=== PATIENT | female | born 1960 | race Caucasian/White ===

== ENCOUNTER 2017-02-06 10:32 | Outpatient (CLI) ==
[2016-03-08 11:42] VITALS: BMI 19.3
[2017-02-06 13:17] LABS: BASOPHILS % (AUTO) 0.2 % (0.0-3.0); EOSINOPHILS # (AUTO) 0.2 K/ul (0.0-0.7); EOSINOPHILS % (AUTO) 2.6 % (0.0-7.0); HEMATOCRIT 44.7 % (37.0-47.0); HEMOGLOBIN 15.1 g/dl (12.0-16.0); IMMATURE GRANULOCYTE % (AUTO) 0.2 % (0.0-5.0); LYMPHOCYTES # (AUTO) 2.5 K/uL (0.60-3.4); LYMPHOCYTES % (AUTO) 40.6 (10.0-50.0); MEAN CORPUSCULAR HEMOGLOBIN 31.3 pg (27.0-31.0); MEAN CORPUSCULAR HGB CONC 33.8 (31.8-35.4); MEAN CORPUSCULAR VOLUME 92.5 fl (81.0-99.0); MONOCYTES # (AUTO) 0.4 K/uL (0.4-2.0); MONOCYTES % (AUTO) 5.9 (0-10); NEUTROPHILS # (AUTO) 3.2 K/ul (2.0-6.9); NEUTROPHILS % (AUTO) 50.5; PLATELET COUNT 304 10^3/uL (140-440); RED BLOOD COUNT 4.83 10^6/ul (4.20-5.40); WHITE BLOOD COUNT 6.26 K/ul (4.6-10.2)
[2017-02-06 13:39] LABS: BILIRUBIN,URINE Negative (NEGATIVE); KETONES,URINE Negative (NEGATIVE); LEUKOCYTE ESTERASE ,URINE Negative (NEGATIVE); NITRITE,URINE Negative (NEGATIVE); PROTEIN,URINE Negative (NEGATIVE); URINE, BLOOD Trace-intact (NEGATIVE)
[2017-02-06 13:40] LABS: ADD URINE MICROSCOPIC YES
[2017-02-06 13:59] LABS: ALBUMIN/GLOBULIN RATIO 1.29; ANION GAP 13.9; BILIRUBIN,TOTAL 0.48 mg/dL (0.00-1.20); BUN/CREATININE RATIO 16.43; CALCIUM 9.8 mg/dL (8.2-10.2); CHOL/HDL RATIO 2.6 (4.5-5.5); CREATININE 0.73 mg/dL (0.60-1.30); POTASSIUM 3.9 mmol/L (3.5-5.10); TOTAL PROTEIN 7.1 g/dL (6.4-8.2)
== END 2017-02-06 10:33 | disposition home or self-care (01) ==
LOC: LAB 10:32
PROVIDERS: ATTEND General Practice
DX: M81.0 Age-related osteoporosis without current pathological fracture (principal); M89.9 Disorder of bone, unspecified; E78.5 Hyperlipidemia, unspecified; J44.9 Chronic obstructive pulmonary disease, unspecified; K21.9 Gastro-esophageal reflux disease without esophagitis; F17.200 Nicotine dependence, unspecified, uncomplicated; Z79.899 Other long term (current) drug therapy
CPT/HCPCS: 36415; 80053; 80061; 81001; 82306; 85025

== ENCOUNTER 2017-02-13 22:17 | Emergency (ER) ==
[2017-02-13 22:26] VITALS: BP 121/89; TEMP 98; BMI 18.1
[2017-02-13] MEDS ORDERED: ASPIRIN CHEWABLE PO STA (22:45)
--- NOTE | 2017-02-13 22:49 | ED.PDOC ---
General ED Provider: Dr. GENIA BYRNES Chief Complaint: Abdominal Pain Stated Complaint: epigastric and chest pain, she usually takes the prilosec at night, she did not take it, when she went ro sleep she hurt in the chest came for the evaluation, non exertional, not short of breath, Time Seen by Physician: 22:47 Mode of Arrival: Ambulance Information Source: Patient Primary Care Provider: [facility] T[facility] Documentation Reviewed and Agree: Yes Cardiovascular Complaint Exam - Chest Pain Complaint/Exam Onset: Gradual Symptoms Are: Still present Timing: Constant Initial Severity: Mild Current Severity: None Location: Reports: Midsternal Pain Radiates: Reports: None Character: Reports: Burning Aggravating: Reports: None Alleviating: Reports: None, OTC meds (Prilosec) Associated Signs and Symptoms: Reports: Nausea, Abdominal pain (epigastric ) Related History: Reports: Similar episode Related Surgical History: Reports: None History of Healthcare-Acquired Pneumonia: Reports: No AMI/ACS Risk Factors: Reports: Hypertension, Smoking TAD Risk Factors: Reports: None Pulmonary Embolism Risk Factors: Reports: None Prior Care for this Complaint: No Recent Stress Test: No Recent Echo/LV Function: No JVD Present: No Subcutaneous Emphysema Present: No Diminshed Breath Sounds: No Reproducible Chest Wall Pain: No Bilateral Pulses Present: Yes Unequal Pulses Noted: No If Risk Factors for AMI/ACS Consider: EKG, Cardiac Enzymes, Serial Studies Differential Diagnoses: ACS, GI Diseasae Review of Systems - Review Of Systems Constitutional: Reports: No symptoms Eyes: Reports: No symptoms Ears, Nose, Mouth, Throat: Reports: No symptoms Respiratory: Reports: No symptoms Cardiac: Reports: Chest pain GI: Reports: Abdominal pain : Reports: No symptoms Musculoskeletal: Reports: No symptoms Skin: Reports: No symptoms Neurological: Reports: No symptoms Endocrine: Reports: No symptoms Hematologic/Lymphatic: Reports: No symptoms All Other Systems: Reviewed and Negative Past Medical History - Past Medical History Previously Healthy: No Endocrine: Reports: Dyslipidemia Cardiovascular: Reports: None Respiratory: Reports: None, COPD Hematological: Reports: None Gastrointestinal: Reports: GERD Genitourinary: Reports: None Neuro/Psych: Reports: None, Anxiety Musculoskeletal: Reports: None Cancer: Reports: Other (skin cancer. melanoma) Last Menstrual Period: 8 yrs ago - Surgical History General Surgical History: Reports: Unknown - Family History Family History: Reports: None - Social History Smoking Status: Current every day smoker, Heavy tobacco smoker Smoking Cessation Counseling Time: > 10 min Hx Substance Use: No Alcohol Screening: None - Immunizations Tetanus Shot up to Date: Yes Physical Exam - Physical Exam Appearance: Well-appearing, No pain distress, Well-nourished Eyes: AMILACR, EOMI, Conjunctiva clear ENT: Ears normal, Nose normal, Oropharynx normal Respiratory: Airway patent, Breath sounds clear, Breath sounds equal, Respirations nonlabored Cardiovascular: RRR, Pulses normal, No rub, No murmur GI/: Soft, Nontender, No masses, Bowel sounds normal, No Organomegaly Musculoskeletal: Normal strength, ROM intact, No edema, No calf tenderness Skin: Warm, Dry, Normal color Neurological: Sensation intact, Motor intact, Reflexes intact, Cranial nerves intact, Alert, Oriented Psychiatric: Affect appropriate, Mood appropriate Critical Care Note - Critical Care Note Total Time (mins): 0 Course - Course Orders, Labs, Meds: Orders Category Date Time Status EKG-(ED ONLY) Stat CARDIO 02/13/17 22:45 Ordered CBC W/ AUTO DIFF Stat LAB 02/13/17 22:45 Ordered COMPREHENSIVE METABOLIC PANEL Stat LAB 02/13/17 22:45 Ordered CREATINE KINASE Stat LAB 02/13/17 22:45 Ordered TROPONIN I Stat LAB 02/13/17 22:45 Ordered Aspirin [Aspirin Chewable] MEDS 02/13/17 22:45 Stat 324 mg PO ONCE STA Vital Signs: Temp Pulse Resp BP Pulse Ox 02/13/17 22:19 98 F 71 20 121/89 98 CIARA Risk Score CIARA Risk Score: Risk Score Odds of by 30D 0 0.1 (0.1-0.2) 1 0.3 (0.2-0.3) 2 0.4 (0.3-0.5) 3 0.7 (0.6-0.9) 4 1.2 (1.0-1.5) 5 2.2 (1.9-2.6) 6 3.0 (2.5-3.6) 7 4.8 (3.8-6.1) Departure - Departure Time of Disposition: 22:57 Disposition: AMA Discharge Problem: Abdominal pain, Peptic reflux disease Instructions: Diet for Stomach Ulcers and Gastritis (ED) Condition: Stable Pt referred to PMD for follow-up: Yes Additional Instructions: no spicy food, no fried food keep taking prilosec as needed. Allergies/Adverse Reactions: Allergies naproxen Allergy (Mild, Unverified 02/10/17 13:03) Unknown Causes pain in legs. Home Medications: Ambulatory Orders Budesonide/Formoterol Fumarate [Symbicort 160-4.5 Mcg Inhaler] 1 puff IH BID Naproxen 500 mg PO BID 11/08/13 Albuterol Sulfate [Proair Hfa] 2 puff IH Q4H 04/08/15 Omeprazole [Prilosec] 20 mg PO QDAC 04/08/15 Rosuvastatin Calcium [Crestor] 10 mg PO DAILY 04/08/15 Oxycodone HCl/Acetaminophen [Percocet 7.5-325 mg Tablet] 7.5 mg PO BID 01/01/16 Cyclobenzaprine HCl [Flexeril] 10 mg PO BID 03/08/16 Disposition Discussed With: Patient, Family
== END 2017-02-13 23:05 | disposition left against medical advice (07) ==
LOC: ED 22:17
DX: K21.9 Gastro-esophageal reflux disease without esophagitis (principal); R10.13 Epigastric pain; I10 Essential (primary) hypertension; F17.210 Nicotine dependence, cigarettes, uncomplicated; Z79.899 Other long term (current) drug therapy
CPT/HCPCS: 99285

== ENCOUNTER 2017-07-06 13:55 | Outpatient (CLI) ==
[2017-07-06 14:13] LABS: BILIRUBIN,URINE Negative (NEGATIVE); KETONES,URINE Negative (NEGATIVE); LEUKOCYTE ESTERASE ,URINE Negative (NEGATIVE); NITRITE,URINE Negative (NEGATIVE); PROTEIN,URINE Negative (NEGATIVE); URINE, BLOOD Trace-intact (NEGATIVE)
[2017-07-06 14:23] LABS: ALBUMIN 3.8 g/dL (3.4-5.0); ALBUMIN/GLOBULIN RATIO 1.19; ANION GAP 15.3; BILIRUBIN,TOTAL 0.45 mg/dL (0.00-1.20); BUN/CREATININE RATIO 14.7; CALCIUM 10.2 mg/dL (8.2-10.2); CHOL/HDL RATIO 2.6 (4.5-5.5); CREATININE 0.68 mg/dL (0.60-1.30); POTASSIUM 4.3 mmol/L (3.5-5.10)
[2017-07-06 14:26] LABS: ADD URINE MICROSCOPIC YES
[2017-07-06 14:27] LABS: BACTERIA,URINE TRACE (NOT PRESENT)
[2017-07-06 14:53] LABS: BASOPHILS % (AUTO) 0.2 % (0.0-3.0); EOSINOPHILS # (AUTO) 0.2 K/ul (0.0-0.7); EOSINOPHILS % (AUTO) 2.7 % (0.0-7.0); HEMOGLOBIN 14.8 g/dl (12.0-16.0); IMMATURE GRANULOCYTE % (AUTO) 0.2 % (0.0-5.0); LYMPHOCYTES # (AUTO) 2.2 K/uL (0.60-3.4); LYMPHOCYTES % (AUTO) 40.3 (10.0-50.0); MEAN CORPUSCULAR HEMOGLOBIN 31.2 pg (27.0-31.0); MEAN CORPUSCULAR HGB CONC 33.6 (31.8-35.4); MEAN CORPUSCULAR VOLUME 92.6 fl (81.0-99.0); MONOCYTES # (AUTO) 0.3 K/uL (0.4-2.0); MONOCYTES % (AUTO) 5.8 (0-10); NEUTROPHILS # (AUTO) 2.8 K/ul (2.0-6.9); NEUTROPHILS % (AUTO) 50.8; PLATELET COUNT 268 10^3/uL (140-440); RED BLOOD COUNT 4.75 10^6/ul (4.20-5.40); WHITE BLOOD COUNT 5.48 K/ul (4.6-10.2)
== END 2017-07-06 13:56 | disposition home or self-care (01) ==
LOC: LAB 13:55
PROVIDERS: ATTEND General Practice
DX: E78.5 Hyperlipidemia, unspecified (principal); F17.200 Nicotine dependence, unspecified, uncomplicated; J44.9 Chronic obstructive pulmonary disease, unspecified; K21.9 Gastro-esophageal reflux disease without esophagitis; M89.9 Disorder of bone, unspecified; Z79.899 Other long term (current) drug therapy
CPT/HCPCS: 36415; 80053; 80061; 81001; 85025

== ENCOUNTER 2017-07-07 14:57 | Outpatient (CLI) ==
--- NOTE | 2017-07-07 15:24 | DI ---
EXAM: Chest two view, frontal and lateral views. HISTORY: Abnormal weight loss. COMPARISON: 10/04/2016. FINDINGS: The heart size is normal. There is no pulmonary vascular congestion. The lungs are clear . No pleural effusion or pneumothorax is seen. No acute osseous abnormality identified. Old left s ixth rib fracture noted. Since the prior study, there has been no significant interval change. IMPRESSION: No acute cardiopulmonary process.
== END 2017-07-07 14:58 | disposition home or self-care (01) ==
LOC: RAD 14:57 → LAB 14:58
PROVIDERS: ATTEND General Practice
DX: R63.4 Abnormal weight loss (principal); R31.29 Other microscopic hematuria; J44.9 Chronic obstructive pulmonary disease, unspecified; F17.200 Nicotine dependence, unspecified, uncomplicated
CPT/HCPCS: 36415; 84443

== ENCOUNTER → 2017-07-26 | Outpatient (POV) | LOC: OUTPT 00:01 | PROVIDERS: ATTEND Otolaryngology | DX: H91.90 Unspecified hearing loss, unspecified ear (principal); H69.90 Unspecified Eustachian tube disorder, unspecified ear; H73.891 Other specified disorders of tympanic membrane, right ear ==

== ENCOUNTER 2017-12-01 09:57 | Outpatient (CLI) ==
--- NOTE | 2017-12-01 12:00 | DI ---
EXAM: Two views of the chest. History: Squamous cell cancer. Comparison: Chest radiograph 07/07/2017 Findings: Heart size is within normal limits. No focal consolidation. No appreciable pleural fluid and no pneumothorax. No acute osseous abnormalities. Impression: No acute cardiopulmonary process. No change compared to the prior study
== END 2017-12-01 09:58 | disposition home or self-care (01) ==
LOC: LAB 09:57
PROVIDERS: ATTEND Surgery
DX: C44.722 Squamous cell carcinoma of skin of right lower limb, including hip (principal)
CPT/HCPCS: 36415; 80053; 85027; 93005; 93010

== ENCOUNTER 2018-03-19 15:34 | Outpatient (CLI) | payer OTHER ==
--- NOTE | 2018-03-19 15:56 | DI ---
EXAM: Three-view right foot COMPARISON: None HISTORY: Trauma and pain FINDINGS: There is no acute fracture or dislocation. Alignment is anatomic. There is partial amputa tion of the great toe. There is no soft tissue swelling. No unexpected radio-opaque foreign bodies. T here is no periosteal reaction or erosion. IMPRESSION: No acute osseous abnormality.
== END 2018-03-19 15:35 | disposition home or self-care (01) ==
LOC: RAD 15:34
PROVIDERS: ATTEND General Practice
DX: M79.89 Other specified soft tissue disorders (principal)

== ENCOUNTER 2018-07-18 13:54 | Outpatient (CLI) | payer OTHER | END 2018-07-18 13:55 | disposition home or self-care (01) | LOC: RHC-LAB 13:54 | PROVIDERS: ATTEND Nurse Practitioner Family | DX: J02.9 Acute pharyngitis, unspecified (principal) | CPT/HCPCS: 87651 ==

== ENCOUNTER 2018-07-27 15:50 | Outpatient (CLI) | payer OTHER | END 2018-07-27 15:51 | disposition home or self-care (01) | LOC: FCC-LAB 15:50 | PROVIDERS: ATTEND Nurse Practitioner Family | DX: J02.9 Acute pharyngitis, unspecified (principal) | CPT/HCPCS: 87651 ==

== ENCOUNTER 2018-10-18 15:18 | Emergency (ER) ==
[2018-10-18 15:26] VITALS: BP 111/76; TEMP 99.1; BMI 15.7
--- NOTE | 2018-10-18 16:58 | ED.PDOC ---
General ED Provider: Dr. CESAR VALDERRAMA Chief Complaint: Nausea/Vomiting Stated Complaint: nausea, vomiting, diarrhea Time Seen by Physician: 15:30 (seen with her nurse at all times ) Mode of Arrival: Walk-In Information Source: Patient Exam Limitations: No limitations Primary Care Provider: SYLVIE ESPAÑA Nursing and Triage Documentation Reviewed and Agree: Yes Does patient meet sepsis criteria?: No System Inflammatory Response Syndrome: Not Applicable Sepsis Protocol: For patient's 13 years and over: Temp is 96.8 and below OR 101 and greater Pulse >90 BPM Resp >20/minute Acutely Altered Mental Status Are patient's symptoms suggestive of a new infection, such as: -Pneumonia -Skin, Soft Tissue -Endocarditis -UTI -Bone, Joint Infection -Implantable Device -Acute Abdominal Infection -Wound Infection -Meningitis -Blood Stream Catheter Infection -Unknown GI Complaint Exam - Vomiting/Diarrhea Complaint/Exam Onset/Duration: 1 day Symptoms Are: Resolved Episodes of Vomiting over last 24 Hours: 2 Episodes of Diarrhea Over Last 24 Hours: 2 Initial Severity: Mild Current Severity: None Character of Vomiting: Reports: Non-bilious Aggravating: Reports: None Alleviating: Reports: None Associated Signs and Symptoms: Denies: Dizziness, Light-headedness, Melena, Hematemesis, Fever, Abdominal pain, Cramping Related History: Reports: Similar episode Related Surgical History: Reports: None Abdominal Findings: Present: None Kussmaul Respirations Present: No Review of Systems - Review Of Systems Constitutional: Reports: No symptoms Eyes: Reports: No symptoms Ears, Nose, Mouth, Throat: Reports: No symptoms Respiratory: Reports: No symptoms Cardiac: Reports: No symptoms GI: Reports: Diarrhea, Nausea, Poor appetite, Vomiting : Reports: No symptoms Musculoskeletal: Reports: No symptoms Skin: Reports: No symptoms Neurological: Reports: No symptoms Endocrine: Reports: No symptoms Hematologic/Lymphatic: Reports: No symptoms All Other Systems: Reviewed and Negative Past Medical History - Past Medical History Previously Healthy: No Endocrine: Reports: Dyslipidemia Cardiovascular: Reports: None Respiratory: Reports: None, COPD Hematological: Reports: None Gastrointestinal: Reports: GERD Genitourinary: Reports: None Neuro/Psych: Reports: None, Anxiety Musculoskeletal: Reports: None Cancer: Reports: Other (skin cancer. melanoma) Last Menstrual Period: 10years ago - Surgical History General Surgical History: Reports: Unknown - Family History Family History: Reports: None - Social History Smoking Status: Current every day smoker Hx Substance Use: No Alcohol Screening: None - Immunizations Tetanus Shot up to Date: Yes Physical Exam - Physical Exam Appearance: Well-appearing, No pain distress, Well-nourished Eyes: AMILCAR, EOMI, Conjunctiva clear ENT: Ears normal, Nose normal, Oropharynx normal Respiratory: Airway patent, Breath sounds clear, Breath sounds equal, Respirations nonlabored Cardiovascular: RRR, Pulses normal, No rub, No murmur GI/: Soft, Nontender, No masses, Bowel sounds normal, No Organomegaly Musculoskeletal: Normal strength, ROM intact, No edema, No calf tenderness Skin: Warm, Dry, Normal color Neurological: Sensation intact, Motor intact, Reflexes intact, Cranial nerves intact, Alert, Oriented Psychiatric: Affect appropriate, Mood appropriate Critical Care Note - Critical Care Note Total Time (mins): 0 Course - Course Hematology/Chemistry: 10/18/18 16:13 10/18/18 15:58 Orders, Labs, Meds: Lab Review 10/18/18 10/18/18 10/18/18 15:58 16:13 16:13 WBC 3.24 L RBC 5.10 Hgb 15.3 Hct 44.8 MCV 87.8 MCH 30.0 MCHC 34.2 RDW Coeff of Abilio 12.1 Plt Count 181 Immature Gran % (Auto) 0.0 Neut % (Auto) 62.7 Lymph % (Auto) 29.6 [place] % (Auto) 5.2 Eos % (Auto) 2.2 Baso % (Auto) 0.3 Immature Gran # (Auto) 0.0 Neut # (Auto) 2.0 Lymph # (Auto) 1.0 [place] # (Auto) 0.2 L Eos # (Auto) 0.1 Baso # (Auto) 0.0 Sodium 135.1 Potassium 3.06 L Chloride 98.8 Carbon Dioxide 29.9 Anion Gap 9.46 BUN 11.2 Creatinine 0.48 L Estimated GFR (MDRD) 133.00 BUN/Creatinine Ratio 23.33 Glucose 108.6 H Lactic Acid Calcium 9.19 Total Bilirubin 0.32 AST 31.1 ALT 21.8 Alkaline Phosphatase 63.2 Total Protein 7.27 Albumin 4.30 Globulin 2.97 Albumin/Globulin Ratio 1.44 Procalcitonin 0.37 10/18/18 16:13 WBC RBC Hgb Hct MCV MCH MCHC RDW Coeff of Abilio Plt Count Immature Gran % (Auto) Neut % (Auto) Lymph % (Auto) [place] % (Auto) Eos % (Auto) Baso % (Auto) Immature Gran # (Auto) Neut # (Auto) Lymph # (Auto) [place] # (Auto) Eos # (Auto) Baso # (Auto) Sodium Potassium Chloride Carbon Dioxide Anion Gap BUN Creatinine Estimated GFR (MDRD) BUN/Creatinine Ratio Glucose Lactic Acid 0.57 L Calcium Total Bilirubin AST ALT Alkaline Phosphatase Total Protein Albumin Globulin Albumin/Globulin Ratio Procalcitonin Orders Category Date Time Status BLOOD CULTURE (ED ONLY) Stat LAB 10/18/18 16:13 Received CBC W/ AUTO DIFF Stat LAB 10/18/18 16:13 Completed COMPREHENSIVE METABOLIC PANEL Stat LAB 10/18/18 15:58 Completed FLU A/B MOLECULAR Stat LAB 10/18/18 15:58 Uncollected LACTIC ACID Stat LAB 10/18/18 16:13 Completed MOLECULAR GROUP A STREP Stat LAB 10/18/18 15:58 Uncollected PROCALCITONIN Stat LAB 10/18/18 16:13 Completed RSV Stat LAB 10/18/18 15:58 Uncollected URINALYSIS C & S IF INDICATED Stat LAB 10/18/18 15:58 Uncollected CHEST, 2 VIEWS PA & LAT Stat RADS 10/18/18 15:58 Ordered Vital Signs: Temp Pulse Resp BP Pulse Ox 10/18/18 15:19 99.1 F 86 20 111/76 98 Departure - Departure Time of Disposition: 18:00 Disposition: HOME SELF-CARE Discharge Problem: Nausea, Vomiting, Viral syndrome, Hypokalemia Instructions: Hypokalemia (ED) Condition: Good Pt referred to PMD for follow-up: Yes IPMP verified?: No Additional Instructions: Please call your Family Physician as soon as possible to schedule a follow-up appointment. Allergies/Adverse Reactions: Allergies naproxen Allergy (Mild, Unverified 05/25/18 14:55) Unknown Causes pain in legs. Home Medications: Ambulatory Orders Budesonide/Formoterol Fumarate [Symbicort 160-4.5 Mcg Inhaler] 1 puff IH BID PRN 11/08/13 Disposition Discussed With: Patient
[2018-10-18] MEDS ORDERED: K-DUR PO STA (16:59)
[2018-10-18] MEDS ORDERED: SODIUM CHLORIDE 1,000 ML IV STA (17:03)
[2018-10-18] MEDS ORDERED: POTASSIUM CHLORIDE PREMIX RUN 10 MEQ in PREMIX 100 ML WATER 1 BAG IV STA (17:04)
== END 2018-10-18 17:13 | disposition home or self-care (01) ==
LOC: ED 15:18
DX: B34.9 Viral infection, unspecified (principal); E87.6 Hypokalemia; R11.2 Nausea with vomiting, unspecified; F17.210 Nicotine dependence, cigarettes, uncomplicated; E78.5 Hyperlipidemia, unspecified; R19.7 Diarrhea, unspecified; J44.9 Chronic obstructive pulmonary disease, unspecified; K21.9 Gastro-esophageal reflux disease without esophagitis
CPT/HCPCS: 36415; 80053; 83605; 84145; 85025; 87040; 87502; 87651; 87801; 99284

== ENCOUNTER 2018-11-01 14:45 | Emergency (ER) ==
[2018-11-01 14:48] VITALS: BP 115/58; TEMP 98.7; BMI 14.8
--- NOTE | 2018-11-01 15:16 | ED.PDOC ---
General ED Provider: Dr. ARA BRASHER Chief Complaint: Respiratory Complaint Stated Complaint: c/o shortness of air and lungs hurting when she breathes. c/ o cough that is non-prod. denies fever. patient has clear nasal congestion. Was treated in ER 2 wks ago for flu and low potassium Time Seen by Physician: 14:50 Mode of Arrival: Walk-In Information Source: Patient Exam Limitations: No limitations Primary Care Provider: SYLVIE ESPAÑA Nursing and Triage Documentation Reviewed and Agree: Yes Does patient meet sepsis criteria?: No If yes, has appropriate treatment been initiated?: No System Inflammatory Response Syndrome: Not Applicable Sepsis Protocol: For patient's 13 years and over: Temp is 96.8 and below OR 101 and greater Pulse >90 BPM Resp >20/minute Acutely Altered Mental Status Are patient's symptoms suggestive of a new infection, such as: -Pneumonia -Skin, Soft Tissue -Endocarditis -UTI -Bone, Joint Infection -Implantable Device -Acute Abdominal Infection -Wound Infection -Meningitis -Blood Stream Catheter Infection -Unknown Past Medical History - Past Medical History Previously Healthy: No Endocrine: Reports: Dyslipidemia Cardiovascular: Reports: None Respiratory: Reports: None, COPD Hematological: Reports: None Gastrointestinal: Reports: GERD Genitourinary: Reports: None Neuro/Psych: Reports: None, Anxiety Musculoskeletal: Reports: None Cancer: Reports: Other (skin cancer. melanoma) Last Menstrual Period: n/a - Surgical History General Surgical History: Reports: Unknown - Family History Family History: Reports: None - Social History Smoking Status: Current every day smoker Hx Substance Use: No Alcohol Screening: None Physical Exam - Physical Exam Appearance: Well-appearing, Thin Ill-appearing: None Pain Distress: None Eyes: AMILCAR, EOMI, Conjunctiva clear ENT: Ears normal, Nose normal, Oropharynx normal Neck: Supple Respiratory: Airway patent (NO wheezing, crackles, rhonchi or rubs), Breath sounds clear, Breath sounds equal, Respirations nonlabored Cardiovascular: RRR, Pulses normal, No rub, No murmur GI/: Soft, Nontender, No masses, Bowel sounds normal, No Organomegaly Musculoskeletal: Normal strength, ROM intact, No edema, No calf tenderness Course - Course Hematology/Chemistry: 11/01/18 15:28 11/01/18 15:28 Orders, Labs, Meds: Lab Review 11/01/18 11/01/18 11/01/18 15:28 15:28 15:35 WBC 7.56 RBC 4.42 Hgb 13.4 Hct 40.3 MCV 91.2 MCH 30.3 MCHC 33.3 RDW Coeff of Abilio 12.7 Plt Count 334 Immature Gran % (Auto) 0.1 Neut % (Auto) 48.8 Lymph % (Auto) 42.6 [place] % (Auto) 6.6 Eos % (Auto) 1.5 Baso % (Auto) 0.4 Immature Gran # (Auto) 0.0 Neut # (Auto) 3.7 Lymph # (Auto) 3.2 [place] # (Auto) 0.5 Eos # (Auto) 0.1 Baso # (Auto) 0.0 ESR 3 D-Dimer (Manual) Sodium 139.3 Potassium 3.86 Chloride 101.2 Carbon Dioxide 30.1 H Anion Gap 11.86 BUN 11.3 Creatinine 0.59 L Estimated GFR (MDRD) 105.00 BUN/Creatinine Ratio 19.15 Glucose 71.2 L Calcium 8.97 Total Bilirubin 0.18 L AST 42.0 H ALT 31.8 Alkaline Phosphatase 68.1 Total Protein 6.44 Albumin 3.71 Globulin 2.73 Albumin/Globulin Ratio 1.35 Urine Color Urine Clarity Urine pH Ur Specific [place] Urine Protein Urine Glucose (UA) Urine Ketones Urine Blood Urine Nitrite Urine Bilirubin Urine Urobilinogen Ur Leukocyte Esterase Urine Opiates Screen Ur Oxycodone Screen Urine Methadone Screen Ur Propoxyphene Screen Ur Barbiturates Screen U Tricyclic Antidepress Ur Phencyclidine Scrn Ur Amphetamine Screen U Methamphetamines Scrn U Benzodiazepines Scrn Urine Cocaine Screen U Cannabinoids Screen Influ A Molecular Assay Negative by naat Influ B Molecular Assay Negative by naat 11/01/18 11/01/18 11/01/18 15:50 16:12 16:12 WBC RBC Hgb Hct MCV MCH MCHC RDW Coeff of Abilio Plt Count Immature Gran % (Auto) Neut % (Auto) Lymph % (Auto) [place] % (Auto) Eos % (Auto) Baso % (Auto) Immature Gran # (Auto) Neut # (Auto) Lymph # (Auto) [place] # (Auto) Eos # (Auto) Baso # (Auto) ESR D-Dimer (Manual) 340.88 Sodium Potassium Chloride Carbon Dioxide Anion Gap BUN Creatinine Estimated GFR (MDRD) BUN/Creatinine Ratio Glucose Calcium Total Bilirubin AST ALT Alkaline Phosphatase Total Protein Albumin Globulin Albumin/Globulin Ratio Urine Color Yellow Urine Clarity Clear Urine pH 6.0 Ur Specific [place] 1.020 Urine Protein Negative Urine Glucose (UA) Negative Urine Ketones Negative Urine Blood Negative Urine Nitrite Negative Urine Bilirubin Negative Urine Urobilinogen 0.2 Ur Leukocyte Esterase Negative Urine Opiates Screen Positive Ur Oxycodone Screen Positive Urine Methadone Screen Negative Ur Propoxyphene Screen Negative Ur Barbiturates Screen Negative U Tricyclic Antidepress Negative Ur Phencyclidine Scrn Negative Ur Amphetamine Screen Negative U Methamphetamines Scrn Negative U Benzodiazepines Scrn Negative Urine Cocaine Screen Negative U Cannabinoids Screen Negative Influ A Molecular Assay Influ B Molecular Assay Orders Category Date Time Status EKG-(ED ONLY) Stat CARDIO 11/01/18 15:19 Completed CBC W/ AUTO DIFF Stat LAB 11/01/18 15:28 Completed CMP [COMPREHENSIVE METABOLIC PANEL] Stat LAB 11/01/18 15:28 Completed D-DIMER Stat LAB 11/01/18 15:50 Completed ESR Stat LAB 11/01/18 15:28 Completed FLU A & B MOLECULAR [FLU A/B MOLECULAR] Stat LAB 11/01/18 15:35 Completed UA [URINALYSIS C & S IF INDICATED] Stat LAB 11/01/18 16:12 Completed URINE DRUG SCREEN (RAPID FOR ED) [DRUG SCREEN, URINE, LAB 11/01/18 16:12 Completed RAPID] Stat CHEST, 2 VIEWS PA & LAT Stat RADS 11/01/18 15:18 Completed Vital Signs: Temp Pulse Resp BP Pulse Ox 11/01/18 14:46 98.7 F 71 20 115/58 L 97 Departure - Departure Time of Disposition: 17:30 Disposition: HOME SELF-CARE Discharge Problem: Anterior chest wall pain, Costochondritis Instructions: Chest Pain (ED), Thoracic Pain (ED) Condition: Good Pt referred to PMD for follow-up: Yes (2 weeks) IPMP verified?: No Additional Instructions: Analgesics for pain as directed Apply ice pack to areas of discomfort for 20 minutes 3-4 times daily Allergies/Adverse Reactions: Allergies naproxen Allergy (Mild, Verified 11/01/18 14:48) Unknown Causes pain in legs. Home Medications: Ambulatory Orders Budesonide/Formoterol Fumarate [Symbicort 160-4.5 Mcg Inhaler] 1 puff IH BID PRN 11/08/13 Gabapentin 300 mg PO TID 11/01/18 Ranitidine HCl [Zantac] 150 mg PO BID 11/01/18 Disposition Discussed With: Patient
--- NOTE | 2018-11-01 16:01 | DI ---
EXAM: Two-view chest HISTORY: Congestion TECHNIQUE: Frontal and lateral views of the chest were obtained. Comparison 12/01/2017. FINDINGS: The heart is normal size. Lungs are clear. The pulmonary vasculature appears normal. Th e costophrenic angles are sharp. IMPRESSION: No active cardiopulmonary disease.
== END 2018-11-01 17:35 | disposition home or self-care (01) ==
LOC: ED 14:45
DX: R06.02 Shortness of breath (principal); R05 Cough; R07.1 Chest pain on breathing; F17.210 Nicotine dependence, cigarettes, uncomplicated; M94.0 Chondrocostal junction syndrome [Tietze]; R07.89 Other chest pain
CPT/HCPCS: 36415; 80053; 80306; 81001; 85025; 85379; 85651; 87502; 93005; 93010; 99283

== ENCOUNTER 2018-11-20 13:17 | Emergency (ER) | payer OTHER ==
[2018-11-20 13:22] VITALS: BP 133/77; TEMP 96.5; BMI 15.3
--- NOTE | 2018-11-20 15:30 | ED.PDOC ---
General ED Provider: Dr. ARA BRASHER Chief Complaint: Hand Pain/Injury Stated Complaint: Rt Hand pain -2nd-4th Metacarpal phalngeal joint. Low back pain -chronic at SI joint, No known injruy Time Seen by Physician: 14:30 Mode of Arrival: Walk-In Information Source: Patient Exam Limitations: No limitations Primary Care Provider: SYLVIE ESPAÑA Nursing and Triage Documentation Reviewed and Agree: Yes Does patient meet sepsis criteria?: No If yes, has appropriate treatment been initiated?: No System Inflammatory Response Syndrome: Not Applicable Sepsis Protocol: For patient's 13 years and over: Temp is 96.8 and below OR 101 and greater Pulse >90 BPM Resp >20/minute Acutely Altered Mental Status Are patient's symptoms suggestive of a new infection, such as: -Pneumonia -Skin, Soft Tissue -Endocarditis -UTI -Bone, Joint Infection -Implantable Device -Acute Abdominal Infection -Wound Infection -Meningitis -Blood Stream Catheter Infection -Unknown Musculoskeletal Complaint Exam - Back Pain Complaint/Exam Mechanism of Injury: Reports: No known trauma Symptoms Are: Still present Timing: Intermittent Initial Severity: Mild Current Severity: Mild Location: Reports: Diffuse (lumbar sacral and SI Region ) Character: Reports: Dull, Aching Aggravating: Reports: Movements Alleviating: Reports: Rest Associated Signs and Symptoms: Denies: Swelling, Redness, Bruising, Fever, Weakness, Numbness, Tingling, Abdominal pain, Flank pain, Bladder incontinence, Bowel incontinence, Weight loss, Pain with weight bearing TAD Risk Factors: Reports: None AAA Risk Factors: Reports: None Cauda Equina Risk Factors: Reports: None Epidural Abcess Risk Factors: Reports: None Related Surgical History: Reports: None Focal Tenderness: Yes Paraspinal Muscle Tenderness: No Paraspinal Muscle Spasm: No Scoliosis: No Lordosis: No Kyphosis: No SLR Test: Right Negative, Left Negative Hip Motion Testing Pain: Right Negative, Left Negative Focal Weakness: Present: None Focal Sensory Loss: Present: None Gait: Present: Abnormal Differential Diagnoses: Osteoporosis, Strain, Other (OA) Review of Systems - Review Of Systems Constitutional: Reports: No symptoms Eyes: Reports: No symptoms Ears, Nose, Mouth, Throat: Reports: No symptoms Respiratory: Reports: No symptoms Cardiac: Reports: No symptoms GI: Reports: No symptoms : Reports: No symptoms Musculoskeletal: Reports: Back pain, Joint pain Skin: Reports: No symptoms Neurological: Reports: No symptoms Endocrine: Reports: No symptoms Hematologic/Lymphatic: Reports: No symptoms All Other Systems: Reviewed and Negative Past Medical History - Past Medical History Previously Healthy: No Endocrine: Reports: Dyslipidemia Cardiovascular: Reports: None Respiratory: Reports: None, COPD Hematological: Reports: None Gastrointestinal: Reports: GERD Genitourinary: Reports: None Neuro/Psych: Reports: None, Anxiety Musculoskeletal: Reports: None Cancer: Reports: Other (skin cancer. melanoma) Last Menstrual Period: menopause - Surgical History General Surgical History: Reports: Unknown - Family History Family History: Reports: None - Social History Smoking Status: Current every day smoker Hx Substance Use: No Alcohol Screening: None Physical Exam - Physical Exam Appearance: Ill-appearing, Thin Ill-appearing: Mild Pain Distress: Mild Eyes: AMILCAR, EOMI, Conjunctiva clear Neck: Supple Respiratory: Airway patent, Breath sounds clear, Breath sounds equal, Respirations nonlabored Cardiovascular: RRR, Pulses normal, No rub, No murmur GI/: Soft, Nontender, No masses, Bowel sounds normal, No Organomegaly Musculoskeletal: Normal strength, ROM intact, No edema, No calf tenderness, Limited ROM (Rt Hand) Skin: Warm, Dry, Normal color Neurological: Sensation intact, Motor intact, Cranial nerves intact, Alert, Oriented Psychiatric: Affect appropriate, Mood appropriate Critical Care Note - Critical Care Note Total Time (mins): 0 Course - Course Hematology/Chemistry: 11/20/18 15:38 11/20/18 15:38 Orders, Labs, Meds: Lab Review 11/20/18 11/20/18 15:38 15:38 WBC 8.37 RBC 4.05 L Hgb 12.4 Hct 37.6 MCV 92.8 MCH 30.6 MCHC 33.0 RDW Coeff of Abilio 13.4 Plt Count 285 Immature Gran % (Auto) 0.2 Neut % (Auto) 56.5 Lymph % (Auto) 35.7 [place] % (Auto) 5.3 Eos % (Auto) 2.2 Baso % (Auto) 0.1 Immature Gran # (Auto) 0.0 Neut # (Auto) 4.7 Lymph # (Auto) 3.0 [place] # (Auto) 0.4 Eos # (Auto) 0.2 Baso # (Auto) 0.0 ESR 6 Sodium 139.6 Potassium 3.82 Chloride 105.1 Carbon Dioxide 27.5 Anion Gap 10.82 BUN 8.6 Creatinine 0.55 L Estimated GFR (MDRD) 114.00 BUN/Creatinine Ratio 15.63 Glucose 88.6 Calcium 9.03 Total Bilirubin 0.33 AST 32.7 ALT 21.2 Alkaline Phosphatase 46.0 Total Protein 6.57 Albumin 3.92 Globulin 2.65 Albumin/Globulin Ratio 1.47 Orders Category Date Time Status CBC W/ AUTO DIFF Stat LAB 11/20/18 15:38 Completed CMP [COMPREHENSIVE METABOLIC PANEL] Stat LAB 11/20/18 15:38 Completed ESR Stat LAB 11/20/18 15:38 Completed HAND, RIGHT 3 VIEWS Stat RADS 11/20/18 15:28 Completed LUMBAR SPINE, MIN 4 VIEWS Stat RADS 11/20/18 15:28 Completed Vital Signs: Temp Pulse Resp BP Pulse Ox 11/20/18 13:18 96.5 F L 77 20 133/77 97 Departure - Departure Time of Disposition: 16:15 Disposition: LEFT W/OUT BEING SEEN Discharge Problem: Osteoarthritis, hand, Low back pain Instructions: Osteoarthritis (ED) Condition: Good Pt referred to PMD for follow-up: Yes IPMP verified?: No Additional Instructions: Ice to area of discomfort Avoid strenuous activity Take tylenol for pain as needed. Allergies/Adverse Reactions: Allergies naproxen Allergy (Mild, Verified 11/20/18 13:23) Unknown Causes pain in legs. Home Medications: Ambulatory Orders Budesonide/Formoterol Fumarate [Symbicort 160-4.5 Mcg Inhaler] 1 puff IH BID PRN 11/08/13 Gabapentin 300 mg PO TID 11/01/18 Ranitidine HCl [Zantac] 150 mg PO BID 11/01/18 Disposition Discussed With: Patient
--- NOTE | 2018-11-20 16:04 | DI ---
EXAM: RIGHT HAND, 3 VIEWS HISTORY: Metacarpophalangeal joint pain FINDINGS: Trabecular markings are accentuated consistent with at least mild, diffuse demineralizatio n. There is diffuse arthropathy most apparent at the carpal metacarpal joints and the distal interph alangeal joints which appears symmetric and probably is related osteoarthritis. There is no fracture or dislocation. Soft tissue swelling of the interphalangeal joint levels is noted. No definite per iarticular erosions. IMPRESSION: 1. Demineralization and diffuse arthropathy, possibly related to osteoarthritis. Correlate clinical ly.
--- NOTE | 2018-11-20 16:20 | DI ---
EXAM: Lumbar spine five views HISTORY: Lumbosacral pain. FINDINGS: Compared to 01/08/2013. Mild scoliosis convex to the right is more noticeable or new. Sacroiliac joints are grossly within n ormal limits. Lateral projections reveal normal vertebral body height and alignment with no spondylo listhesis or fracture. Mild degenerative disc and facet disease lumbosacral junction. Oblique views reveal intact pars interarticularis structures. IMPRESSION: 1. Mild scoliosis. 2. Early, currently mild degenerative changes of the lumbosacral junction.
== END 2018-11-20 16:56 | disposition home or self-care (01) ==
LOC: ED 13:17
DX: M19.041 Primary osteoarthritis, right hand (principal); M54.5 Low back pain; G89.29 Other chronic pain; F17.210 Nicotine dependence, cigarettes, uncomplicated
CPT/HCPCS: 36415; 80053; 85025; 85651; 99283

== ENCOUNTER 2018-12-04 09:18 | Outpatient (CLI) ==
--- NOTE | 2018-12-04 10:01 | DEXA ---
EXAM: Bone densitometry. History: Age related osteoporosis. Findings: Evaluation of the lumbar spine reveals a total bone mineral density of 0.967 grams per centimeter squ ared with T-score of negative 1.8. Evaluation of the left hip reveals a total bone mineral density of 0.846 grams per centimeter squared with T-score of negative 1.3. Evaluation of the right hip reveals a total bone mineral density of 0.852 grams per centimeter square d with T-score of negative 1.2. FRAX: 10-year probability for major osteoporotic fracture is 7.5% and 1.3% for hip fracture. Impression: Osteopenia of the lumbar spine and bilateral hips
== END 2018-12-04 09:19 | disposition home or self-care (01) ==
LOC: RAD 09:18
PROVIDERS: ATTEND General Practice
DX: M81.0 Age-related osteoporosis without current pathological fracture (principal); M89.9 Disorder of bone, unspecified; F17.200 Nicotine dependence, unspecified, uncomplicated